=== PATIENT | female | born 1970 | race Caucasian/White ===

== ENCOUNTER 2025-01-01 22:18 | Observation (INO) ==
[2025-01-01] MEDS: SODIUM CHLORIDE 0.9% 1,000 ML IV ONE (22:38)
[2025-01-01] MEDS: MoRPHine SULFATE 4 MG/ML 1 ML CARP\\VIAL IV PRN (22:38)
[2025-01-01] MEDS: ONDANSETRON INJ 2 MG/ML 2 ML VIAL IV STA (22:38)
--- NOTE | 2025-01-01 22:39 | Emergency Department Note ---
History of Present Illness General Chief complaint: Abdominal Pain Stated complaint: ABDOMINAL PAIN UNDER RT SIDE OF RIBS Time Seen by Provider: 01/01/25 22:25 History of Present Illness Maximum Pain Intensity: 10 This is a 54-year-old female presenting to the emergency department for evaluation of right upper quadrant abdominal pain that began within the last hour. The patient states that pain began as she was getting out of the shower this evening. The pain is rated a 10/10 and worsens with pressing in the area. She is without fever or chills. Patient has history of tubal ligation but no other abdominal surgeries. Last meal was around 7 PM when she had chicken John. Home Medications Medication Instructions Recorded Confirmed Type tirzepatide (weight loss) 10 10 mg (0.5 mL) subcut Q7D #6 mL 12/29/24 12/29/24 Rx mg/0.5 mL subcutaneous pen injector (Zepbound) Allergies Allergy/AdvReac Type Severity Reaction Status Date / Time Penicillins Allergy Unknown unknown Verified 12/29/24 09:07 amlodipine AdvReac Abdominal Verified 01/02/25 03:43 Pain Past Med/Surg History Problem List (Updated 01/02/25 @ 03:53 by Dexter Anders PA-C) Abdominal pain, RUQ (Acute) Biliary colic (Acute) Hypertension SHERON (obstructive sleep apnea) Prediabetes Obesity Dietary counseling and surveillance Ankle fracture, left (Acute) Medical History Anxiety Surgical History No significant past surgical history Family History Father Hypertension Social History Smoking Status: Never smoker Tobacco Type: Cigarettes Hx Alcohol Use: Yes Hx Substance Use: No Preferred Language: Upper Sorbian Communication Ability: Effective Recovery Specialist Required: No marital status: Current Living Situation: Spouse current occupational status: employed Feels Safe at Home: Yes Review of Systems A total of 10 systems reviewed and were otherwise negative Physical Exam Vital Signs Vital Signs - 24 hr 01/01/25 22:22 01/01/25 22:31 01/02/25 00:00 Temperature 36.5 C Temperature Source Temporal Artery Scan Pulse Rate 93 H 91 H Pulse Rate [Apical] 87 Pulse Rhythm [Apical] Regular Pulse Strength [Apical] Normal Respiratory Rate 18 18 Respiratory Effort / Characteristics Non-Labored Spontaneous Non-Labored Spontaneous Respiratory Depth Normal Normal Respiratory Pattern Regular Regular Blood Pressure 114/80 Blood Pressure [Right Arm] 120/85 Blood Pressure Mean 91 Blood Pressure Mean [Right Arm] 96 Blood Pressure Position Sitting Blood Pressure Position [Right Arm] Semi-fowlers Pulse Oximetry 99 97 Oxygen Delivery Method Room Air Room Air Sepsis Recent Fever Within 48 Hours No Sepsis New/Unexplained Change in Mental Status N/A Sepsis Action Taken by Nursing No Action Required 01/02/25 02:00 Temperature Temperature Source Pulse Rate Pulse Rate [Apical] 94 H Pulse Rhythm [Apical] Regular Pulse Strength [Apical] Normal Respiratory Rate 18 Respiratory Effort / Characteristics Non-Labored Spontaneous Respiratory Depth Normal Respiratory Pattern Regular Blood Pressure Blood Pressure [Right Arm] 118/87 Blood Pressure Mean Blood Pressure Mean [Right Arm] 97 Blood Pressure Position Blood Pressure Position [Right Arm] Semi-fowlers Pulse Oximetry 98 Oxygen Delivery Method Room Air Sepsis Recent Fever Within 48 Hours Sepsis New/Unexplained Change in Mental Status Sepsis Action Taken by Nursing VITALS: Vitals are noted on the nurse's note and reviewed by myself. Vital signs stable. GENERAL: Well-developed, well-nourished, white female, who is moderately uncomfortable appearing, but overall pleasant and cooperative. HEAD: Normocephalic atraumatic. NECK: Supple without nuchal rigidity. No lymphadenopathy. No thyromegaly. Cervical spine is nontender. HEART: Regular rate and rhythm without murmurs gallops or rubs. LUNGS: Clear to auscultation bilaterally without wheezes, rales or rhonchi. No retractions or accessory muscle use. ABDOMEN: Positive normal bowel sounds x 4. Soft, with right upper quadrant abdominal tenderness. There is mild epigastric tenderness. No lower or left- sided tenderness. MUSCULOSKELETAL: No muscle atrophy, erythema, or edema noted. Full range of motion in all extremities. Course Administered Medications Sodium Chloride (Nss) 1,000 mls @ 100 mls/hr IV .Q10H CLARISA Stop: 01/05/25 02:29 Last Admin: 01/02/25 03:17 Dose: 100 mls/hr Documented By: HARRIET Morphine Sulfate (Morphine Sulfate 4 Mg/Ml 1 Ml Carp\Vial) 3 mg IV Q3H PRN PRN Reason: Pain Stop: 01/16/25 02:22 Last Admin: 01/02/25 03:24 Dose: 3 mg Documented By: HARRIET Discontinued Medications Sodium Chloride (Nss) 1,000 mls @ 999 mls/hr IV .Q1H1M ONE Stop: 01/01/25 23:32 Last Infusion: 01/01/25 23:40 Dose: Infused Documented By: Admin: 01/01/25 22:38 Dose: 999 mls/hr Documented By: GABRIEL Metronidazole (Flagyl) 500 mg in 100 mls @ 100 mls/hr IV NOW STA; Protocol Stop: 01/02/25 03:20 Last Admin: 01/02/25 03:40 Dose: 100 mls/hr Documented By: HARRIET Ioversol (Optiray 320 100ml) 93 ml IV ONCE ONE Stop: 01/01/25 23:35 Last Admin: 01/01/25 23:34 Dose: 93 ml Documented By: THELMA Morphine Sulfate (Morphine Sulfate 4 Mg/Ml 1 Ml Carp\Vial) 4 mg IV Q30M PRN PRN Reason: Pain Stop: 01/15/25 22:30 Last Admin: 01/01/25 23:40 Dose: 4 mg Documented By: Admin: 01/01/25 22:38 Dose: 4 mg Documented By: GABRIEL Ondansetron HCl (Ondansetron Inj 2 Mg/Ml 2 Ml Vial) 4 mg IV NOW STA Stop: 01/01/25 22:32 Last Admin: 01/01/25 22:38 Dose: 4 mg Documented By: GABRIEL Medical Decision Making Differential Diagnosis Differential diagnosis: Etiologies such as biliary colic, cholecystitis, hepatitis, pancreatitis, cardiac disease, pancreatitis, gastritis, peptic ulcer disease, appendicitis, cystitis, diverticulitis, mesenteric ischemia, inflammatory bowel disease, ileus, bowel obstruction, testicular/adnexal torsion, aortic pathology, shingles, as well as others were considered Laboratory Data 01/01/25 22:37 01/01/25 22:37 Lab Results 01/01/25 01/02/25 Range/Units 22:37 00:18 WBC 10.10 (4.8-10.8) K/ul RBC 4.88 (4.20-5.40) M/uL Hgb 14.6 (12.0-16.0) g/dl Hct 43.8 (37.0-47.0) % MCV 89.8 (80.0-100.0) fL MCH 29.9 (25.0-34.0) pg MCHC 33.3 (32.0-36.0) g/dL RDW Std Deviation 45.0 (36.4-46.3) fL RDW Coeff of Juan 13.8 (11.5-14.5) % Plt Count 394 (130-400) K/uL MPV 10.1 (9.4-12.4) fL Immature Gran % (Auto) 0.2 % Neut % (Auto) 53.2 % Lymph % (Auto) 37.4 % [place] % (Auto) 6.9 % Eos % (Auto) 1.7 % Baso % (Auto) 0.6 % Neut # (Auto) 5.37 (1.40-6.50) K/uL Lymph # (Auto) 3.78 H (1.20-3.40) K/uL [place] # (Auto) 0.70 H (0.11-0.59) K/uL Eos # (Auto) 0.17 (0.00-0.50) K/uL Baso # (Auto) 0.06 (0.00-0.20) K/uL Immature Gran # (Auto) 0.02 (0.01-0.20) K/uL PT 10.6 (9.0-12.0) Seconds INR 1.0 (0.9-1.1) APTT 29 (21-31) Seconds PTT Ratio 1.1 Sodium 140 (136-145) mmol/L Potassium 3.5 (3.5-5.1) mmol/L Chloride 103 (98-107) mmol/L Carbon Dioxide 27 (21-32) mmol/L Anion Gap 10 (3-11) BUN 20 (6-23) mg/dl Creatinine 0.84 (0.6-1.2) mg/dl Est Cr Clr Drug Dosing 79.1 ml/min eGFR 82.53 BUN/Creatinine Ratio 23.8 H (10-20) Glucose 118 H (70-99(Fasting)) mg/dl Calcium 10.0 (8.6-10.3) mg/dl Total Bilirubin 0.4 (0.2-1.0) mg/dl AST 32 (13-39) U/L ALT 37 (7-52) U/L Alkaline Phosphatase 90 (34-104) U/L Total Protein 7.3 (6.0-8.3) gm/dl Albumin 4.5 (3.4-5.0) gm/dl Globulin 2.8 (2.5-4.0) gm/dl Albumin/Globulin Ratio 1.6 (0.9-2) Lipase 97 H (11-82) U/L Urine Color Yellow Urine Appearance Clear (Clear) Urine pH 6.0 (4.5-7.5) Ur Specific [place] 1.034 H (1.000-1.030) Urine Protein Negative (Negative) Urine Glucose (UA) Negative (Negative) Urine Ketones Negative (Negative) Urine Blood Negative (Negative) Urine Nitrite Negative (Negative) Urine Bilirubin Negative (Negative) Urine Urobilinogen Negative (Negative) Ur Leukocyte Esterase Trace H (Negative) Urine WBC (Auto) 0-5 (0-5) /hpf Urine RBC (Auto) 0-2 (0-2) /hpf U Hyaline Cast (Auto) 0-2 (0-2) /lpf U Epithel Cells (Auto) 0-2 (0-2) /hpf Urine Bacteria (Auto) 1+ H (None Seen) Urine Test Negative (Negative) Urine Comment Imaging Data Radiologist's Impression: Abdomen/Pelvis CT 01/01/25 22:31 CT of the abdomen pelvis with the abdomen pelvis with contrast Technique: Postcontrast axial images abdomen pelvis. Coronal and sagittal reformatted images made available for review Comparison made to prior exam dated 06/25/2024 Findings: Solid abdominal organs are unremarkable in appearance. Lung bases are clear. No free air or intestinal obstruction. Diverticulosis without evidence of diverticulitis. Normal-appearing appendix. Moderate amount of stool within the colon. Bone windows demonstrate no focal abnormality. Impression Unremarkable exam. Electronically signed by Graham Gamble 01-01-2025 11:45 PM Gallbladder Ultrasound 01/01/25 23:47 I ordered abdominal ultrasound Technique: Grayscale and color Doppler ultrasound images of theRight upper quadrant. No comparison Findings: Cholelithiasis with subtle pericholecystic fluid. Gallbladder wall measures 3 mm in thickness. Common bile duct is within normal limits measuring 5 mm. 0.8 0.9 x 1 x 1.1 cm hyperechoic structure within the left hepatic lobe likely representing hemangioma Impression Cholelithiasis with findings equivocal for acute cholecystitis. Clinical correlation recommended. Electronically signed by Graham Gamble 01-02-2025 01:50 AM MDM Narrative Physical exam and history were performed. Nursing notes, EMR, and Medication List were personally reviewed. No social concerns were identified as barriers to patients care. History was provided by the Patient and who is at bedside. Patient appears to have right upper quadrant abdominal pain bringing her to the ER. This seems to have begun after eating dinner. She is tender in the right upper quadrant. IV access was established and labs were obtained. She was hydrated normal saline and given IV morphine and IV Zofran for comfort. Patient was made NPO. She was initially sent to CT scan for imaging of her abdomen and pelvis. Patient's blood work is as above and was reviewed. She does not have a slightly elevated white blood cell count, gross anemia, bandemia, or significant electrolyte imbalance. Lipase and transaminases not diagnostic. CT scan was performed and independently reviewed by myself and radiology showing no acute process to account for the patient's symptoms. Out of concern for her discomfort, she was sent to ultrasound, and ultrasound was also reviewed by myself and radiology. This does appear to show gallstones with some thickening of the gallbladder. This certainly could represent biliary colic versus equivocal cholecystitis. Clinically this does correlate with her symptoms. Escalation of care was considered, and felt to be necessary. Case was discussed with the on-call surgical team, and the patient was evaluated by Christopher Arrington PA-C. Please see Mr. Torres's dictation for further patient course, plan, disposition. The chart was completed utilizing [facility] Speech Voice Recognition Software. Grammatical errors, random word insertions, pronoun errors, and incomplete sentences are an occasional consequence of this system due to software limitations, ambient noise, and hardware issues. Any formal questions or concerns about the content, text, or information contained within the body of this dictation should be directly addressed to the provider for clarification. Impression & Plan Biliary colic, Abdominal pain, RUQ Discharge Plan Visit Data Chief Complaint: Abdominal Pain Stated Complaint: ABDOMINAL PAIN UNDER RT SIDE OF RIBS ED Provider: Jorge A Pastor ED Midlevel Provider: Dexter Anders Discharge Problem: Biliary colic, Abdominal pain, RUQ Patient Disposition: Admitted As Inpatient Condition: Good Discharge Instructions Interventions: ED Discharge Assessment Last Done: 01/02/25 02:56
[2025-01-01 22:56] LABS: Basophils # (auto) 0.06 K/uL (0.00-0.20); Basophils % (auto) 0.6 %; Eosinophils # (auto) 0.17 K/uL (0.00-0.50); Eosinophils % (auto) 1.7 %; Hematocrit (blood only) 43.8 % (37.0-47.0); Hemoglobin 14.6 g/dl (12.0-16.0); Immature Granulocytes # (auto) 0.02 K/uL (0.01-0.20); Immature Granulocytes % (auto) 0.2 %; Lymphocytes # (auto) 3.78 K/uL (1.20-3.40); Lymphocytes % (auto) 37.4 %; Mean Corpuscular Hemoglobin 29.9 pg (25.0-34.0); Mean Corpuscular Hgb Conc 33.3 g/dL (32.0-36.0); Mean Corpuscular Volume 89.8 fL (80.0-100.0); Mean Platelet Volume 10.1 fL (9.4-12.4); Monocytes % (auto) 6.9 %; Neutrophils # (auto) 5.37 K/uL (1.40-6.50); Neutrophils % (auto) 53.2 %; Platelet Count 394 K/uL (130-400); RDW Coefficient of Variation 13.8 % (11.5-14.5); Red Blood Count 4.88 M/uL (4.20-5.40)
[2025-01-01 23:13] LABS: Albumin Globulin Ratio 1.6 (0.9-2); Albumin Level 4.5 gm/dl (3.4-5.0); BUN Creatinine Ratio 23.8 (10-20); Bilirubin,Total 0.4 mg/dl (0.2-1.0); Creatinine Clr Calc Pharmacy 79.1 ml/min; Globulin 2.8 gm/dl (2.5-4.0); Potassium 3.5 mmol/L (3.5-5.1); Total Protein 7.3 gm/dl (6.0-8.3)
[2025-01-01] MEDS: OPTIRAY 320 100ml IV ONE (23:34)
--- NOTE | 2025-01-01 23:46 | CT Scan Report ---
CT of the abdomen pelvis with the abdomen pelvis with contrast Technique: Postcontrast axial images abdomen pelvis. Coronal and sagittal reformatted images made available for review Comparison made to prior exam dated 06/25/2024 Findings: Solid abdominal organs are unremarkable in appearance. Lung bases are clear. No free air or intestinal obstruction. Diverticulosis without evidence of diverticulitis. Normal-appearing appendix. Moderate amount of stool within the colon. Bone windows demonstrate no focal abnormality. Impression Unremarkable exam. Electronically signed by Graham Gamble 01-01-2025 11:45 PM
[2025-01-02 00:37] LABS: Appearance Urine Clear (Clear); Bacteria Urine Automated 1+ (None Seen); Bilirubin Urine Negative (Negative); Blood Urine Negative (Negative); Cast Urine Automated 0-2 /lpf (0-2); Color Urine Yellow; Epithelial Cell Urine Auto 0-2 /hpf (0-2); Glucose Urine UA Negative (Negative); Ketones Urine Negative (Negative); Leukocyte Esterase Urine Trace (Negative); Nitrite Urine Negative (Negative); Protein Urine Negative (Negative); RBC Urine Automated 0-2 /hpf (0-2); Specific Gravity Urine 1.034 (1.000-1.030); Urobilinogen Urine Negative (Negative); WBC Urine Automated 0-5 /hpf (0-5)
--- NOTE | 2025-01-02 01:50 | Ultrasound Report ---
I ordered abdominal ultrasound Technique: Grayscale and color Doppler ultrasound images of theRight upper quadrant. No comparison Findings: Cholelithiasis with subtle pericholecystic fluid. Gallbladder wall measures 3 mm in thickness. Common bile duct is within normal limits measuring 5 mm. 0.8 0.9 x 1 x 1.1 cm hyperechoic structure within the left hepatic lobe likely representing hemangioma Impression Cholelithiasis with findings equivocal for acute cholecystitis. Clinical correlation recommended. Electronically signed by Graham Gamble 01-02-2025 01:50 AM
[2025-01-02] MEDS ORDERED: ONDANSETRON INJ 2 MG/ML 2 ML VIAL IV PRN (02:23)
[2025-01-02] MEDS ORDERED: ACETAMINOPHEN 1,000 MG/100 ML VIAL IV PRN (02:23)
--- NOTE | 2025-01-02 02:32 | History & Physical Report ---
Date of Service January 02, 2025 Assessment & Plan (1) Biliary colic: Plan: I evaluated the patient in room see a request of the emergency department staff. Recommendations are as follows Patient does have a normal CAT scan but she does have subtle findings concerning for acute cholecystitis on gallbladder ultrasound She does have an elevated lipase but clinically does not have any evidence of pancreatitis I presented the patient with the following options: 1. As the patient's gallbladder ultrasound is equivocal for cholecystitis and she has normal LFTs and no leukocytosis, I told the patient we could potentially discharge her home on oral antibiotics and see how she fares clinically with return precautions in place 2. I offered the patient mission to the hospital with potential plans for cholecystectomy on 01/02/2025 After careful consideration the patient notes that she wishes to be admitted to the hospital with potential for cholecystectomy on 01/02/2025 and we will therefore proceed as follows: Analgesics will be provided Antiemetics we provided Will hydrate her with IV fluids Will initiate antibiotics in form of Cipro and Flagyl as the patient reports a penicillin allergy Will repeat LFTs the morning of 01/02/2025 Will check a preoperative EKG Will check a preoperative chest x-ray Will check a test I discussed the surgical procedure with the patient and she does wish to proceed. She will be seen by Dr. Torres on morning of 01/02/2025 and further discussion we had about performing cholecystectomy this admission Will use SCDs for DVT prevention, no chemical means due to potential for surgery She will be a level 1 full code Addendum: Chest x-ray showed no evidence of pneumonia. EKG showed normal sinus rhythm without changes indicative of acute ischemia. History of Present Illness Chief Complaint: Abdominal pain Primary Care Provider: LAURA Mcintyre This is a 50. Female who presented to the emergency department secondary to abdominal pain. She had to the pain began shortly after eating a meal last evening. She notes the pain is primarily located in the right upper quadrant without any radiation or other modifying factors. I did ask patient if she has ever had any postprandial pain in the past several weeks to months and she said she did have an episode approximately 1 month ago that was similar in nature and was again triggered by eating. With her current pain she does not have any fevers, shakes, or chills. She did have nausea without vomiting. She notes that she has never had any prior abdominal surgeries other than a tubal ligation. The patient says that she leads an active lifestyle and does not get chest pain or shortness of breath with activity. She says she does have a history of smoking but quit several years ago. She also adds that she has recently lost approximately 15 pounds (she notes that this was an intentional weight loss and she utilizes a weight loss drug called tirzepatide and notes that her most recent dose of this medication was approximately 1 week and 2 days ago). Since arrival to the emergency department she has had labs and imaging which I independently reviewed. Patient had a CT scan of the abdomen pelvis which was without any acute process. She did have a gallbladder ultrasound that showed gallstones with some subtle pericholecystic fluid. Gallbladder wall was 3 mm in thickness. Common bile duct appeared to be within normal limits. Labs including CBC were white blood cell count, hemoglobin, hematocrit, and platelet count normal. Chemistry profile showed sodium and potassium as well as the BUN and creatinine were normal. Her bilirubin, transaminases, alkaline phosphatase were all within normal range and not elevated. She did have a slight elevation of her lipase at 97. Urinalysis showed trace leukocyte Estrace and 1+ back. Was otherwise not indicative infection. At the time of my interview she was resting comfortably in bed and she was in no distress Allergies Allergy/AdvReac Type Severity Reaction Status Date / Time Penicillins Allergy Unknown unknown Verified 12/29/24 09:07 amlodipine AdvReac Abdominal Verified 01/02/25 03:43 Pain Home Medications Medication Instructions Recorded Confirmed Type tirzepatide (weight loss) 10 10 mg (0.5 mL) subcut Q7D #6 mL 12/29/24 12/29/24 Rx mg/0.5 mL subcutaneous pen injector (Zepbound) Past Med/Surg History Problem List (Updated 01/02/25 @ 03:53 by Dexter Anders PA-C) Abdominal pain, RUQ (Acute) Biliary colic (Acute) Hypertension SHERON (obstructive sleep apnea) Prediabetes Obesity Dietary counseling and surveillance Ankle fracture, left (Acute) Medical History Anxiety Surgical History No significant past surgical history Family History Father Hypertension Social History Smoking Status: Never smoker Tobacco Type: Cigarettes Hx Alcohol Use: Yes Hx Substance Use: No Preferred Language: Arabic Communication Ability: Effective Marble Helper Required: No marital status: Current Living Situation: Spouse current occupational status: employed Feels Safe at Home: Yes Review of Systems Review of Systems: All systems reviewed & are unremarkable except as noted in HPI & below Physical Exam Constitutional: WD/WN, vitals as above Eyes: + anicteric sclerae ENMT: Ears: no hearing impairment and no external ear abnormality Mouth: no oropharynx abnormality Neck: trachea midline Respiratory: normal respiratory effort; no respiratory distress Cardiovascular: Rate/Rhythm: regular rate and regular rhythm Gastrointestinal (Abdomen): Abdomen is rotund but soft. There is no rebound tenderness, guarding, rigidity, or signs of peritonitis. The patient did have some slight tenderness with palpation of the right upper quadrant. Musculoskeletal: No calf tenderness Skin: no rashes and no jaundice Neurologic: moves all extremities Psychiatric: A+Ox3, euthymic affect Results & Data Results & Data Vital Signs (Past 12 Hours) Vital Signs Temp Pulse Pulse Resp BP BP Pulse Ox 01/02/25 00:00 87 18 120/85 97 01/01/25 22:31 91 H 01/01/25 22:22 36.5 C 93 H 18 114/80 99 O2 Del Method 01/02/25 00:00 Room Air 01/01/25 22:31 01/01/25 22:22 Room Air PG Care Time/CCT Total # of Minutes Spent Total Time Spent with Patient: Total time spent is greater than 50% in coordination of care (as documented) at patient's floor/unit and/or counseling patient: Coding Level of Care Code 00532 INT INP/OBS CARE 3/75MIN Diagnoses Biliary colic K80.50
[2025-01-02 02:46] LABS: Partial Thromboplastin Ratio 1.1; Partial Thromboplastin Time 29 Seconds (21-31); Prothrombin Time 10.6 Seconds (9.0-12.0)
[2025-01-02 02:59] LABS: Pregnancy Test, Urine Negative (Negative)
[2025-01-02] MEDS: SODIUM CHLORIDE 0.9% 1,000 ML IV SCH (03:17)
[2025-01-02] MEDS: MoRPHine SULFATE 4 MG/ML 1 ML CARP\\VIAL IV PRN (03:24)
[2025-01-02] MEDS: metroNIDAZOLE 500 MG/100 ML BAG IV STA (03:40)
[2025-01-02] MEDS: CIPROFLOXACIN / D5W 400 MG/200 ML BAG IV STA (04:55)
--- NOTE | 2025-01-02 05:21 | XRay Report ---
Exam(s): XR CXR 1 VIEW EXAM: XR Chest, 1 View CLINICAL HISTORY: Reason for exam: pre-op. TECHNIQUE: Frontal view of the chest. COMPARISON: 01/07/19 FINDINGS: Lungs: Unremarkable. No consolidation. Pleural space: Unremarkable. No pneumothorax. Heart: Unremarkable. No cardiomegaly. Mediastinum: Unremarkable. Normal mediastinal contour. Bones/joints: Unremarkable. No acute fracture. IMPRESSION: Normal chest x-ray. Electronically signed by: Angelo Werner MD 01/02/25 05:20 AM
[2025-01-02 06:24] LABS: Basophils # (auto) 0.06 K/uL (0.00-0.20); Basophils % (auto) 0.7 %; Eosinophils % (auto) 1.2 %; Hematocrit (blood only) 38.6 % (37.0-47.0); Hemoglobin 12.8 g/dl (12.0-16.0); Immature Granulocytes # (auto) 0.02 K/uL (0.01-0.20); Immature Granulocytes % (auto) 0.2 %; Lymphocytes % (auto) 31.4 %; Mean Corpuscular Hemoglobin 30.4 pg (25.0-34.0); Mean Corpuscular Hgb Conc 33.2 g/dL (32.0-36.0); Mean Corpuscular Volume 91.7 fL (80.0-100.0); Mean Platelet Volume 10.3 fL (9.4-12.4); Monocytes # (auto) 0.71 K/uL (0.11-0.59); Monocytes % (auto) 8.6 %; Neutrophils % (auto) 57.9 %; Platelet Count 337 K/uL (130-400); RDW Coefficient of Variation 13.7 % (11.5-14.5); RDW Standard Deviation 46.1 fL (36.4-46.3); Red Blood Count 4.21 M/uL (4.20-5.40); White Blood Count 8.29 K/ul (4.8-10.8)
[2025-01-02 06:47] LABS: Albumin Globulin Ratio 1.9 (0.9-2); Albumin Level 3.7 gm/dl (3.4-5.0); BUN Creatinine Ratio 19.7 (10-20); Bilirubin,Total 0.6 mg/dl (0.2-1.0); Calcium 8.6 mg/dl (8.6-10.3); Creatinine Clr Calc Pharmacy 87.7 ml/min; Potassium 3.9 mmol/L (3.5-5.1); Total Protein 5.7 gm/dl (6.0-8.3)
[2025-01-02] MEDS ORDERED: PROPOFOL IV EMULSION 10 MG/ML 20 ML VIAL IV ONE ×4 (07:52→09:24)
[2025-01-02] MEDS ORDERED: ROCURONIUM BROMIDE 10 MG/ML 5 ML VIAL IV ONE (07:52)
[2025-01-02] MEDS ORDERED: DEXAMETHASONE SOD INJ 4 MG/ML VIAL ONE (07:52)
[2025-01-02] MEDS ORDERED: LIDOCAINE 2% 2 ML VIAL/AMP(20MG/ML) INFIL ONE (07:52)
[2025-01-02] MEDS ORDERED: ONDANSETRON INJ 2 MG/ML 2 ML VIAL ONE (07:52)
[2025-01-02] MEDS ORDERED: MIDAZOLAM HCL 1 MG/ML 2ML VIAL ONE (07:53)
[2025-01-02] MEDS ORDERED: fentaNYL citrate PF 100 MCG/2 ML VIAL ONE ×2 (07:53→09:10)
[2025-01-02] MEDS ORDERED: ePHEDrine sulfate 50 MG/ML AMP IV PRN ×2 (08:12→08:25)
[2025-01-02] MEDS ORDERED: ATROPINE SULFATE 0.1 MG/ML 10ML SYR IV PRN ×2 (08:12→08:25)
[2025-01-02] MEDS ORDERED: DROPERIDOL 5 MG/2 ML VIAL IV PRN ×2 (08:12→08:25)
--- NOTE | 2025-01-02 08:12 | Anesthesiology Consultation ---
Date of Service January 02, 2025 Assessment & Plan Chart Review Chart Review: Acceptable Risk for Surgery and Patient NOT seen in Pre Admission Testing Consults Requested none History Surgery Operation Date: 01/02/25 08:10 Proposed Procedures p Laparoscopic Cholecystectomy Possible Michelle - Luis A Torres DO Height/Weight Height: 5 ft 2 in Weight: 88.9 kg Allergies Allergy/AdvReac Type Severity Reaction Status Date / Time Penicillins Allergy Unknown unknown Verified 12/29/24 09:07 amlodipine AdvReac Abdominal Verified 01/02/25 03:43 Pain Medications Home Medications Medication Instructions Recorded Confirmed Last Taken tirzepatide (weight loss) 10 10 mg (0.5 mL) subcut Q7D #6 mL 12/29/24 12/29/24 Unknown mg/0.5 mL subcutaneous pen injector (Zepbound) oxycodone 5 mg tablet 5 - 10 mg (1 - 2 x 5 mg) PO 01/02/25 Unknown .[id number] PRN pain #15 tabs Active Medications Generic Name Dose Route Start Last Admin Trade Name Freq PRN Reason Stop Dose Admin Sodium Chloride 1,000 mls @ 100 mls/hr 01/02/25 02:30 01/02/25 03:17 Nss IV 01/05/25 02:29 100 mls/hr .Q10H CLARISA Administration Morphine Sulfate 3 mg 01/02/25 02:23 01/02/25 03:24 Morphine Sulfate 4 Mg/Ml 1 Ml Carp\Vial IV 01/16/25 02:22 3 mg Q3H PRN Administration Pain Past Medical History Medical History Anxiety Past Family History Family History Father Hypertension Past Surgical History Surgical History No significant past surgical history Social History Smoking Status: Never smoker tobacco type: cigarettes Hx Alcohol Use: Yes alcohol intake frequency: holidays/special occasions only Hx Substance Use: No Physical Exam Vital Signs Last Vital Signs Temp 36.8 C 01/02/25 07:15 Pulse 91 H 01/02/25 07:15 Resp 16 01/02/25 07:15 BP 101/66 01/02/25 07:15 Pulse Ox 95 01/02/25 07:15 O2 Del Method Room Air 01/02/25 07:15 Testing Laboratory Results 01/02/25 05:41 01/02/25 05:41 PT 10.6 Seconds (9.0-12.0) 01/01/25 22:37 INR 1.0 (0.9-1.1) 01/01/25 22:37 APTT 29 Seconds (21-31) 01/01/25 22:37 Urine Color Yellow 01/02/25 00:18 Urine Appearance Clear (Clear) 01/02/25 00:18 Urine pH 6.0 (4.5-7.5) 01/02/25 00:18 Ur Specific [place] 1.034 (1.000-1.030) H 01/02/25 00:18 Urine Protein Negative (Negative) 01/02/25 00:18 Urine Glucose (UA) Negative (Negative) 01/02/25 00:18 Urine Ketones Negative (Negative) 01/02/25 00:18 Urine Nitrite Negative (Negative) 01/02/25 00:18 Ur Leukocyte Esterase Trace (Negative) H 01/02/25 00:18 Urine WBC (Auto) 0-5 /hpf (0-5) 01/02/25 00:18 Urine RBC (Auto) 0-2 /hpf (0-2) 01/02/25 00:18 U Hyaline Cast (Auto) 0-2 /lpf (0-2) 01/02/25 00:18 U Epithel Cells (Auto) 0-2 /hpf (0-2) 01/02/25 00:18 Urine Bacteria (Auto) 1+ (None Seen) H 01/02/25 00:18 Urine Test Negative (Negative) 01/02/25 00:18 01/02/25 00:18 Urine Test Negative
[2025-01-02] MEDS: LACTATED RINGER'S 1,000 ML IV SCH (08:24)
--- NOTE | 2025-01-02 08:24 | Surgery Progress Note ---
Date of Service January 02, 2025 Assessment & Plan (1) Acute cholecystitis: Plan: Her CT and ultrasound images and results were personally viewed and interpreted by myself She does have a distended gallbladder with mild pericholecystic fluid consistent with acute cholecystitis Will plan on a laparoscopic cholecystectomy, possible open, possible intraoperative cholangiogram today Consent was obtained, risks discussed including bleeding, infection, bile leak, ductal injury Admission and Anticipated Discharge Date Admission Date: January 02, 2025 Subjective Patient seen and examined. Still with right upper quadrant abdominal pain. Afebrile. Review of Systems Constitutional: no fever and no chills Eyes: no blind spots and no corrective lenses Respiratory: no cough and no dyspnea Cardiovascular: no chest pain and no dyspnea on exertion Gastrointestinal: + abdominal pain; no nausea and no vomit ing Genitourinary: no dysuria Musculoskeletal: no back pain and no neck pain Integumentary: no acne and no lesions Neurologic: no gait abnormality and no paresthesia Psychiatric: no behavioral changes and no depression Hematologic / Lymphatic: no easy bleeding and no easy bruising Physical Exam Constitutional: WD/WN, vitals as above Eyes: PERRL, conjunctivae normal, anicteric sclerae Respiratory: normal respiratory effort, lungs clear to auscultation Cardiovascular: RRR, no murmur, no edema Gastrointestinal (Abdomen): Inspection/Auscultation: abdomen normal to inspection; abdomen not distended Percussion/Palpation: + abdomen tender (Right upper quadrant) and abdomen soft; no guarding and no hernia Skin: no rashes, warm and dry Psychiatric: A+Ox3, euthymic affect Results & Data Vital Signs (Past 12 Hours) Vital Signs Temp Pulse Pulse Pulse Resp BP BP 01/02/25 08:14 36.8 C 102 H 20 118/75 01/02/25 07:15 36.8 C 91 H 16 101/66 01/02/25 03:28 01/02/25 03:28 37.1 C 77 16 130/87 01/02/25 02:56 91 H 18 128/78 01/02/25 02:41 92 H 01/02/25 02:00 94 H 18 118/87 01/02/25 00:00 87 18 120/85 01/01/25 22:31 91 H 01/01/25 22:22 36.5 C 93 H 18 114/80 Pulse Ox O2 Del Method 06/13/25 08:14 98 Room Air 01/02/25 07:15 95 Room Air 01/02/25 03:28 Room Air 01/02/25 03:28 98 Room Air 01/02/25 02:56 99 Room Air 01/02/25 02:41 01/02/25 02:00 98 Room Air 01/02/25 00:00 97 Room Air 01/01/25 22:31 01/01/25 22:22 99 Room Air PG Care Time/CCT Total # of Minutes Spent Total Time Spent with Patient: Total time spent is greater than 50% in coordination of care (as documented) at patient's floor/unit and/or counseling patient: Coding Level of Care Code 55810 SUB INP/OBS CARE 2/35MIN Diagnoses Acute cholecystitis K81.0
[2025-01-02] MEDS ORDERED: fentaNYL citrate PF 100 MCG/2 ML VIAL IV PRN (08:25)
--- NOTE | 2025-01-02 08:48 | Electrocardiogram Report ---
Test Reason : Blood Pressure : */* mmHG Vent. Rate : 91 BPM Atrial Rate : 91 BPM P-R Int : 176 ms QRS Dur : 84 ms QT Int : 372 ms P-R-T Axes : 41 4 13 degrees QTcB Int : 457 ms Normal sinus rhythm Nonspecific ST abnormality When compared with ECG of 07-Jan-2019 10:16, No significant change was found Confirmed by Ren Valencia ([id number]) on 01/02/2025 8:48:00 AM Referred By: REFERRED SELF Confirmed By: Ren Valencia
[2025-01-02] MEDS ORDERED: PHENYLEPHRINE 100MCG/ML 5ML SYR ONE (09:22)
[2025-01-02] MEDS: BUPIVACAINE/EPINEPHRINE 0.25% 1:200,000 30 ML VIAL ONE (09:29)
[2025-01-02] MEDS ORDERED: KETOROLAC 30 MG/ML VIAL ONE (09:30)
[2025-01-02] MEDS ORDERED: SUGAMMADEX SODIUM 200 MG/2 ML VIAL IV ONE (09:31)
--- NOTE | 2025-01-02 09:41 | Post Operative Brief Note ---
PG Immediate Post Op with CF Date of Surgery January 02, 2025 Pre & Post Diagnosis Operation Date: 01/02/25 08:10 Pre-Op Diagnosis: Acute cholecystitis. Post-Op Diagnosis: Acute cholecystitis. I identified the patient and participated in the time-out.: Yes Procedure Operation Date: 01/02/25 08:10 Actual Procedures p Laparoscopic Cholecystectomy(Not Applicable) - Luis A Torres DO Surgeon Luis A Torres DO [employer] Guille SANCHEZ Estimated Blood Loss 10 Findings See Below Acutely inflamed, edematous and dilated gallbladder consistent with acute cholecystitis Specimens Specimen Description: A. Gallbladder and contents. Anesthesia Type General Complications none Disposition Disposition: Recovery Room
--- NOTE | 2025-01-02 09:43 | Operative Report ---
PG Post Operative Report Pre & Post Diagnosis Operation Date: 01/02/25 08:10 Pre-Op Diagnosis: Acute cholecystitis. Post-Op Diagnosis: Acute cholecystitis. I identified the patient and participated in the time-out.: Yes Procedure Operation Date: 01/02/25 08:10 Actual Procedures p Laparoscopic Cholecystectomy(Not Applicable) - Luis A Torres DO Surgeon Luis A Torres DO Super[employer] Guille SANCHEZ Estimated Blood Loss 10 Findings See Below Acutely inflamed, edematous and dilated gallbladder consistent with acute cholecystitis Fluids see anesthesia record Specimens Gallbladder to pathology Drains None Anesthesia Type General Complications none Disposition Disposition: Recovery Room Indications 54-year-old female with acute cholecystitis Description of Procedure The patient was brought to the operating room and placed in the supine position with both arms extended. At this time she underwent general endotracheal anesthesia without any problems. She was given appropriate pre-operative antibiotics. Her abdomen prepped and draped in the usual sterile fashion. A timeout was called, the procedure was verified as Laparoscopic cholecystectomy, possible open, possible intra-operative cholangiogram. Surgical, nursing and anesthesia teams agreed and the procedure was begun. After injection of 0.25% Marcaine with epinephrine, a supraumbilical vertical incision was made and carried down to the fascia using S-retractors. The abdominal wall was then elevated with towel clamps and abdomen entered using the Veress needle confirming position using the saline drop test. Pneumoperitoneum was established. 5mm trocar was placed. Laparoscope was introduced. No injury from entry into the abdomen was visualized after inspection of the abdomen. Three further ports were placed under direct visualization. One 11mm in the subxiphoid region and two 5mm in the RUQ. At this time the abdomen was inspected and the gallbladder identified. The gallbladder fundus was grasped and retracted cephalad. The gallbladder itself was very distended, inflamed and edematous consistent with acute cholecystitis. The gallbladder infundibulum was then grasped and retracted laterally. The cystic duct and cystic artery were then identified and skeletonized. The critical view of safety was obtained. They were both then clipped twice proximally and once distally and then divided using scissors. The gallbladder was then taken off of the liver bed using electrocautery and placed in an endocatch bag and removed from the subxiphoid port. The liver bed was then inspected and no bile leak or bleeding was evident. The subxiphoid port was then closed using 0-Vicryl using the suture passer. The trocars were then removed under direct visualization and no bleeding was present. Abdomen was desufflated. The skin was then closed using 4-0 Monocryl in a subcuticular fashion. Surgical glue was applied. Needle and sponge counts were correct x 2. At this time the patient was awoken from anesthesia and extubated having remained stable throughout the entire case. The patient was then transported to PACU in stable condition. The nurse practitioner was present scrubbed for the entire case. She was essential in positioning, prepping and draping the patient, retraction and exposure, driving the laparoscope, closure of the incisions and placement of the dressings. I attest to the content of the Intraoperative Record and any orders documented therein. Any exceptions are noted below.
[2025-01-02] MEDS: fentaNYL citrate PF 100 MCG/2 ML VIAL IV PRN (10:10)
--- NOTE | 2025-01-02 10:15 | Anesthesiology Progress Note ---
Date of Service January 02, 2025 Anesthesia Post Procedure Vital Signs Vital Signs: Temp Pulse Pulse Pulse Resp BP BP 01/02/25 10:00 105 H 10 L 118/93 01/02/25 09:53 36.4 C L 104 H 20 118/70 01/02/25 08:14 36.8 C 102 H 20 118/75 01/02/25 07:15 36.8 C 91 H 16 101/66 01/02/25 03:28 01/02/25 03:28 37.1 C 77 16 130/87 01/02/25 02:56 91 H 18 128/78 01/02/25 02:41 92 H 01/02/25 02:00 94 H 18 118/87 01/02/25 00:00 87 18 120/85 01/01/25 22:31 91 H 01/01/25 22:22 36.5 C 93 H 18 114/80 Pulse Ox O2 Del Method O2 Flow Rate 01/02/25 10:00 96 Oxymask 6 01/02/25 09:53 90 Oxymask 10 01/02/25 08:14 98 Room Air 01/02/25 07:15 95 Room Air 01/02/25 03:28 Room Air 01/02/25 03:28 98 Room Air 01/02/25 02:56 99 Room Air 01/02/25 02:41 01/02/25 02:00 98 Room Air 01/02/25 00:00 97 Room Air 01/01/25 22:31 01/01/25 22:22 99 Room Air Pain Intensity Right Upper Abdomen: Pain Intensity: 1 Transfer of Care Handoff Completed per policy Notes Mental Status: alert / awake / arousable Patient Amnestic to Procedure: Yes Nausea / Vomiting: adequately controlled Pain: adequately controlled Airway Patency, RR, SpO2: stable & adequate BP & HR: stable & adequate Hydration State: stable & adequate Anesthetic Complications: no major complications apparent and Pt Satisfied with anesthetic care
[2025-01-02] MEDS ORDERED: ACETAMINOPHEN 325 MG TAB PO PRN (10:50)
[2025-01-02] MEDS ORDERED: MoRPHine SULFATE 2 MG/ML CARP IV PRN (10:50)
[2025-01-02] MEDS: metroNIDAZOLE 500 MG/100 ML BAG IV SCH (11:01)
[2025-01-02] MEDS: oxyCODONE HCL IR 5 MG TAB (IMMEDIATE RELEASE) PO PRN (13:22)
[2025-01-02] MEDS: CIPROFLOXACIN / D5W 400 MG/200 ML BAG IV SCH (16:00)
[2025-01-02 23:09] VITALS: RESP 16
[2025-01-03] MEDS: MoRPHine SULFATE 4 MG/ML 1 ML CARP\\VIAL IV PRN (04:05)
[2025-01-03 06:36] LABS: Basophils # (auto) 0.02 K/uL (0.00-0.20); Basophils % (auto) 0.2 %; Eosinophils # (auto) 0.01 K/uL (0.00-0.50); Eosinophils % (auto) 0.1 %; Hematocrit (blood only) 37.7 % (37.0-47.0); Hemoglobin 12.4 g/dl (12.0-16.0); Immature Granulocytes # (auto) 0.06 K/uL (0.01-0.20); Immature Granulocytes % (auto) 0.5 %; Lymphocytes # (auto) 1.74 K/uL (1.20-3.40); Lymphocytes % (auto) 13.8 %; Mean Corpuscular Hemoglobin 30.2 pg (25.0-34.0); Mean Corpuscular Hgb Conc 32.9 g/dL (32.0-36.0); Mean Corpuscular Volume 91.7 fL (80.0-100.0); Mean Platelet Volume 10.6 fL (9.4-12.4); Monocytes % (auto) 5.5 %; Neutrophils # (auto) 10.11 K/uL (1.40-6.50); Neutrophils % (auto) 79.9 %; Platelet Count 323 K/uL (130-400); RDW Coefficient of Variation 13.8 % (11.5-14.5); RDW Standard Deviation 46.5 fL (36.4-46.3); Red Blood Count 4.11 M/uL (4.20-5.40); White Blood Count 12.64 K/ul (4.8-10.8)
[2025-01-03 07:02] LABS: Albumin Globulin Ratio 1.9 (0.9-2); Albumin Level 3.9 gm/dl (3.4-5.0); BUN Creatinine Ratio 14.3 (10-20); Bilirubin,Total 0.5 mg/dl (0.2-1.0); Calcium 8.8 mg/dl (8.6-10.3); Creatinine Clr Calc Pharmacy 73.2 ml/min; Globulin 2.1 gm/dl (2.5-4.0); Potassium 3.7 mmol/L (3.5-5.1)
[2025-01-03 07:22] VITALS: BP 119/75; PULSE 72; TEMP 97.9; O2SAT 94
--- NOTE | 2025-01-03 11:23 | Surgery Progress Note ---
Date of Service January 03, 2025 Assessment & Plan (1) Acute cholecystitis: Plan: POD #1 s/p laparoscopic cholecystectomy. She is doing quite well. Her labs are normal. She is tolerating diet. Will discharge her to home today. Will have her follow-up in clinic in 1 to 2 weeks. Admission and Anticipated Discharge Date Admission Date: January 02, 2025 Subjective Doing fairly well. Some right upper quadrant pain. No nausea or vomiting. Tolerating diet. Physical Exam Physical Exam: AFVSS NAD, A&O x 3 NCAT Abdomen: Soft, mild TTP RUQ Incisions C/D/I, Dermabond in place Results & Data Vital Signs (Past 12 Hours) Vital Signs Temp Pulse Resp BP Pulse Ox O2 Del Method 01/03/25 07:28 Room Air 01/03/25 07:21 36.6 C 72 16 119/75 94 Room Air 01/03/25 03:16 36.8 C 84 16 111/62 92 Room Air
[2025-01-03] MEDS: oxyCODONE HCL IR 5 MG TAB (IMMEDIATE RELEASE) PO PRN (12:00)
--- NOTE | 2025-01-06 07:04 | Discharge Summary ---
Date of Service January 03, 2025 Admission HPI Per Admitting Provider This is a 50. Female who presented to the emergency department secondary to abdominal pain. She had to the pain began shortly after eating a meal last evening. She notes the pain is primarily located in the right upper quadrant without any radiation or other modifying factors. I did ask patient if she has ever had any postprandial pain in the past several weeks to months and she said she did have an episode approximately 1 month ago that was similar in nature and was again triggered by eating. With her current pain she does not have any fevers, shakes, or chills. She did have nausea without vomiting. She notes that she has never had any prior abdominal surgeries other than a tubal ligation. The patient says that she leads an active lifestyle and does not get chest pain or shortness of breath with activity. She says she does have a history of smoking but quit several years ago. She also adds that she has recently lost approximately 15 pounds (she notes that this was an intentional weight loss and she utilizes a weight loss drug called tirzepatide and notes that her most recent dose of this medication was approximately 1 week and 2 days ago). Since arrival to the emergency department she has had labs and imaging which I independently reviewed. Patient had a CT scan of the abdomen pelvis which was without any acute process. She did have a gallbladder ultrasound that showed gallstones with some subtle pericholecystic fluid. Gallbladder wall was 3 mm in thickness. Common bile duct appeared to be within normal limits. Labs including CBC were white blood cell count, hemoglobin, hematocrit, and platelet count normal. Chemistry profile showed sodium and potassium as well as the BUN and creatinine were normal. Her bilirubin, transaminases, alkaline phosphatase were all within normal range and not elevated. She did have a slight elevation of her lipase at 97. Urinalysis showed trace leukocyte Estrace and 1+ back. Was otherwise not indicative infection. At the time of my interview she was resting comfortably in bed and she was in no distress Principal Diagnosis acute cholecystitis Discharge Exam awake/alert, no distress Respiratory normal respiratory effort Gastrointestinal (Abdomen) Inspection/Auscultation: + abdominal surgical incision (c/d/i with dermabond); abdomen not distended Percussion/Palpation: + abdomen tender (mild ruq pain) and abdomen soft Discharge Data Allergies Allergy/AdvReac Type Severity Reaction Status Date / Time Penicillins Allergy Unknown unknown Verified 01/02/25 08:14 amlodipine AdvReac Abdominal Verified 01/02/25 08:14 Pain Consultations 01/02/25 02:59 ED Decision to Admit Stat Procedures Performed Operation Date: 01/02/25 08:10 Actual Procedures p Laparoscopic Cholecystectomy(Not Applicable) - Luis A Torres DO Ordered Studies 01/01/25 22:31 CT abd pelvis IV con only Stat 01/01/25 23:47 US gallbladder Stat Hospital Course (1) Acute cholecystitis: This is a 54yF who presented to the [facility] ED on the late evening of 01/01 with complaint of right upper quadrant abdominal pain associated with nausea. Workup in the ER with a RUQ US showed concern for cholecystitis. The patient was made NPO with IVF and started on IV abx. On 01/02 the patient went to the OR and underwent laparoscopic cholecystectomy with Dr. Torres. The patient tolerated the procedure well, see op note for full details. Post operatively the patient's diet was advanced as tolerated and pain managed on prn medications. On POD#1 the patient was deemed stable for discharge to home. She was instructed to follow up in the office in 2 weeks. Total Time Total Time Spent Total Time Spent (In Minutes): 10 Discharge Plan Discharge Items Patient Disposition: Home - Self-Care Reason For Visit: TANESHA Discharge Diagnosis: laparoscopic cholecystectomy Condition on Discharge: Good Activity: Per Instructions section Lifting: No more than 10 pounds Exercise/Sports: Wait until after follow-up appointment Non-emergency contact: Surgeon Call non-emergency contact if: you have any medication questions, your symptoms worsen, your temperature is above 101.5, your wound has increased redness, your wound has increased drainage and your wound pain has increased Follow-up/Referrals: Luis A Torres DO [Physician] - (call office for follow up in 1-2 weeks ) Sophia Vanegas CRNP [Primary Care Provider] - Diet: Regular Addtl Attending Provider Instructions: SPECIAL CARE INSTRUCTIONS: * Dressing: You have surgical glue called dermabond on your surgical site incisions. You may shower with this on. This will tend to come off within a couple of weeks. Do not pick at it. * You may shower . NO soaking in pools or baths for 2 weeks * No lifting greater than 10lbs. No exercise until cleared by surgeon. Light walking is accepted. * No driving while taking narcotic pain medication * No drinking alcohol while taking narcotic pain medication * May use Ibuprofen/Tylenol over the counter for pain as tolerated. Do not exceed 3grams of Tylenol per 24 hours * Expect some swelling and bruising. * Diet Regular Call your doctor if: * Temperature above 101 degrees, nausea/vomiting, fever/chills * Pain not relieved by pain medicine ordered * There is increased drainage or redness from any incision * You have any unanswered questions or concerns [phone]. FOLLOW UP VISIT: If not already scheduled, please call the office for a follow-up visit. Office Pending Studies at Discharge: Yes Studies:: surgical pathology Stand-Alone Forms: [facility] [employer], Smoking Cessation Medications and DC Order Prescriptions: New oxycodone 5 mg tablet 5 - 10 mg PO .[id number] MDD no more than 6 tabs in 24hours PRN (Reason: pain) Qty: 15 0RF Continued Zepbound 10 mg/0.5 mL pen injector 10 mg subcut Q7D Qty: 6 1RF Discharge Orders: Discharge Order (Routine); Ordered 01/03/25 Ordered By: Thang Younger Admission Data Admit Date/Time: 01/02/25 02:34 Attending Provider: Luis A Torres Admit Provider: Luis A Torres Primary Care Provider: Sophia Vanegas Other Providers: Luis A Torres Other Interventions: Discharge Summary Assessment (RN) Last Done: 01/03/25 11:44 Coding Level of Care Code 35119 IN/OBS DISCH 30 MIN/LESS Diagnoses Acute cholecystitis K81.0
== END 2025-01-03 14:07 | disposition home or self-care (01) ==
LOC: ED 22:18 → INTOOBSV 01-02 02:34 → 3N 01-02 02:34